=== PATIENT | female | born 2005 | race Asian ===

== ENCOUNTER 2023-08-19 01:16 | Inpatient (IN) ==
[2023-08-19 02:12] LABS: ABS Eosinophils 0.1 10^3/uL (0.0-0.5); ABS Lymphocytes 1.5 10^3/uL (1.0-4.8); ABS Monocytes 0.3 10^3/uL (0.0-0.9); ABS Neutrophils 3.4 10^3/uL (1.5-7.6); ABS Nucleated RBC 0.01 10^3/ul; Eosinophil % 1.9 %; Hematocrit 37.5 % (35-45); Hemoglobin 12.8 g/dL (11.5-14.3); Mean Corpuscular Hgb Conc 34.1 g/dL (31-36); Mean Corpuscular Volume 87.9 fL (80-97); Mean Platelet Volume 8.6 fL (7.5-11.2); Nucleated Red Blood Cells % 0.1 %/100WBC (0.0-0.8); Platelet Count 194 10^3/uL (150-450); Red Blood Count 4.27 10^6/uL (3.63-4.92); Red Cell Distribution Width 13.5 % (12-17); White Blood Count 5.3 10^3/uL (3.8-11.8)
[2023-08-19 02:18] LABS: Urine Appearance Clear; Urine Bilirubin Negative (Negative); Urine Blood Negative (Negative); Urine Color Yellow; Urine Glucose Negative (Negative); Urine Ketones Trace (Negative); Urine Nitrite Negative (Negative); Urine Protein Trace (Negative); Urine Specific Gravity 1.032 (1.002-1.030); Urine Urobilinogen Negative (Negative); Urine pH 6.5 (5.0-8.0)
[2023-08-19 02:27] LABS: Urine Benzodiazepine Screen None Detected (None Detect); Urine Cannabinoids Screen None Detected (None Detect); Urine Opiates Screen None Detected (None Detect)
[2023-08-19 03:16] LABS: TSH Ultra Thyroid Stim Horm 1.83 mcIU/mL (0.34-5.60)
[2023-08-19 03:31] LABS: Albumin 4.9 g/dL (3.2-5.2); Albumin/Globulin Ratio 1.7 (1-3); Alcohol, S < 13 mg/dL (<13); Anion Gap 9 mmol/L (2-16); Blood Urea Nitrogen 20 mg/dL (6-24); CO2 Carbon Dioxide 26 mmol/L (22-32); Calcium 9.7 mg/dL (8.6-10.3); Chloride 103 mmol/L (101-111); Creatinine, Serum 0.75 mg/dL (0.51-0.95); Globulin 2.9 g/dL (2-4); Glucose 102 mg/dL (70-100); Potassium 3.9 mmol/L (3.5-5.0); Salicylate < 2.50 mg/dL (<30); Sodium 138 mmol/L (135-145); Total Bilirubin 0.5 mg/dL (0.2-1.0); Total Protein 7.8 g/dL (6.4-8.9); eGFR CKD-EPI 116.8 (>60)
[2023-08-19 03:45] LABS: ALT 9 U/L (7-52); AST 11 U/L (13-39); Acetaminophen < 15 mcg/mL; Alkaline Phosphatase 46 U/L (35-149)
[2023-08-19] MEDS ORDERED: Al Hydrox/Mg Hydrox/Simet LIQ 30 ML UDC PO PRN (04:42)
[2023-08-19 09:31] VITALS: BP 114/69
[2023-08-19] MEDS: Vitamin THERAPEUTIC TAB PO SCH (10:35)
[2023-08-20 08:57] LABS: HDL Cholesterol 43.4 mg/dL
== END 2023-08-20 12:00 | disposition home or self-care (01) | DRG 755 ==
LOC: ED 01:16 → EDHOLD 04:03 → BSU 08:38
PROVIDERS: ADMIT Psychiatry & Neurology Psychiatry; ATTEND Psychiatry & Neurology Psychiatry